=== PATIENT | male | born 1960 | race Caucasian/White ===

== ENCOUNTER 2018-01-08 17:05 | Emergency (ER) | payer OTHER ==
[2018-01-08 17:15] VITALS: BP 153/94
[2018-01-08] MEDS ORDERED: Albuterol/Ipratropium NEB.SOL* Albuterol 2.5 MG/Ipratropium 0.5 MG 3 ML INH ONE (17:32)
--- NOTE | 2018-01-08 17:33 | UC ---
Respiratory Complaint HPI - HPI Summary HPI Summary: The patient is a 57 y/o M presenting to [facility] with a chief complaint of fever ( 101F), chest tightness with mild SOB, and body aches and lethargy focused in the lower extremities starting yesterday with a current aching pain rating of 4/ 10 in severity. He denies any chest pain. He started with a fever yesterday, which he relieved with one dose of Motrin yesterday, none today. He then began feeling lethargic. He reports that these symptoms occur about every two years, which cause him to have bronchitis, and he has also had PNA from this. He additionally has a hx of HTN but no asthma. No one around him has similar symptoms, and he has not had any recent traveling. No allergies. Nonsmoker. - History of Current Complaint Chief Complaint: UCRespiratory Stated Complaint: FEVER,SORE THROAT Time Seen by Provider: 01/08/18 17:11 Hx Obtained From: Patient Onset/Duration: Sudden Onset, Lasting Hours - starting yesterday, Still Present Severity Initially: Moderate Severity Currently: Moderate Pain Intensity: 4 Pain Scale Used: 0-10 Numeric Character: Cough: Nonproductive Associated Signs And Symptoms: Positive: Fever - 101F, Pleuritic Chest Pain - chest tightness from SOB - Allergies/Home Medications Allergies/Adverse Reactions: Allergies Allergy/AdvReac Type Severity Reaction Status Date / Time No Known Allergies Allergy Verified 01/08/18 17:16 Home Medications: Home Medications Losartan TAB* [Cozaar TAB*] 1 tab PO DAILY 01/08/18 [History Confirmed 01/08/18] amLODIPine TAB* [Norvasc 5 mg TAB*] 2.5 mg PO DAILY 01/08/18 [History Confirmed 01/08/18] PMH/Surg Hx/FS Hx/Imm Hx Previously Healthy: Yes Endocrine History: Other Other Endocrine History: NEGATIVE: diabetes Cardiovascular History: Hypertension Other Cardiovascular History: negative Respiratory History: Bronchitis, Pneumonia, Other Other Respiratory History: NEGATIVE: asthma Other GI/ History: negative Other Neurological History: negative Other Psychological History: negative Other Cancer History: negative - Surgical History Surgical History: None - Social History Alcohol Use: Occasionally Substance Use Type: None Smoking Status (MU): Never Smoked Tobacco Review of Systems Constitutional: Fever - 101F, Other - body aches and lethargy focused in the lower extremities Skin: Negative Eyes: Negative ENT: Negative Respiratory: Shortness Of Breath - with chest tightness, Cough - nonproductive Cardiovascular: Negative Gastrointestinal: Negative Genitourinary: Negative Motor: Negative Neurovascular: Negative Musculoskeletal: Negative Neurological: Negative Psychological: Negative All Other Systems Reviewed And Are Negative: Yes Physical Exam - Summary Physical Exam Summary: Appearance: Well-Appearing, No Pain Distress, Well-Nourished Eyes: conjunctiva clear, no discharge ENT: Hearing grossly normal, no muffled/hoarse voice. Tympanic membrane normal appearing bilaterally. No pharyngeal erythema or exudates noted. Neck: Normal, Supple Respiratory/Lung Sounds: Lungs clear, air entry equal bilaterally, No respiratory distress, No accessory muscle use. No wheezing, rhonchi or crackles Cardiovascular: RRR, No murmur Abdomen: Nontender, Soft, no guarding, not distended Bowel Sounds: Present Musculoskeletal: Normal Neurological: Alert, muscle tone normal Psychiatric:Normal, age appropriate behavior Skin: Normal, Warm, Dry, Normal color Triage Information Reviewed: Yes Vital Signs: Initial Vital Signs Temp 100.7 F 01/08/18 17:13 Pulse 98 01/08/18 17:13 Resp 18 01/08/18 17:13 BP 153/94 01/08/18 17:13 Pulse Ox 100 01/08/18 17:13 Vital Signs Reviewed: Yes Diagnostic Evaluation - Laboratory O2 Sat by Pulse Oximetry: 100 Respiratory Course/Dx - Course Course Of Treatment: During the visit today, we discussed the findings and further plan. He got one nebulizer treatment with DuoNeb with improvement in his symptoms . Air entry was improved on exam as well . One dose of azithromycin 500 mg was given to him here and rest was prescribed to the pharmacy. Patient expressed understanding . - Differential Dx/Diagnosis Provider Diagnoses: Bronchitis Discharge - Sign-Out/Discharge Documenting (check all that apply): Patient Departure - Patient will be discharged home. All imaging exams completed and their final reports reviewed: No Studies - Discharge Plan Condition: Stable Disposition: HOME Prescriptions: Azithromycin TAB* [Zithromax TAB (Z-ELISA) 250 mg #6 tabs] 250 mg PO DAILY 4 Days #4 tab Patient Education Materials: Acute Bronchitis (ED) Referrals: [facility] [place] [facility] REFERRAL [Outside] - 3 Days Additional Instructions: Please start taking the medication as prescribed to the pharmacy . Ibuprofen as needed for fever. Follow up with your primary care doctor in 3 days. Patients blood pressure slightly high in Urgent care today , plan follow up with PCP for better control Return to Urgent care / ER if symptoms get worse. - Billing Disposition and Condition Condition: STABLE Disposition: Home - Attestation Statements Document Initiated by Aric: Yes Documenting Scribe: Padmaja Jones Provider For Whom Aric is Documenting (Include Credential): Dr. Emmy Schneider MD Scribe Attestation: I, Padmaja Jones scribed for Dr. Emmy Schneider MD on 01/08/18 at 1810. Scribe Documentation Reviewed: Yes Provider Attestation: The documentation as recorded by the Padmaja agustin accurately reflects the service I personally performed and the decisions made by me, Dr. Emmy Schneider MD
[2018-01-08] MEDS ORDERED: Azithromycin TAB* 250 MG PO ONE (17:36)
== END 2018-01-08 18:10 | disposition home or self-care (01) ==
LOC: UCEAST 17:05
DX: J40 Bronchitis, not specified as acute or chronic (principal); I10 Essential (primary) hypertension
CPT/HCPCS: 99202; A9270-GY; G0463

== ENCOUNTER 2018-11-20 15:43 | Emergency (ER) | payer OTHER ==
[2018-11-20 16:01] VITALS: BP 122/85
--- NOTE | 2018-11-20 16:10 | UC ---
Skin Complaint HPI - HPI Summary HPI Summary: 58 yo male presents with ?abscess to left posterior thigh. He tells me that over the last 3-4 days he has been noticing a painful lump at his buttocks/ thigh crease. Today was very painful. He is unable to visualize the area and is unsure what is there. Denies fever or chills. - History of Current Complaint Chief Complaint: UCSkin Time Seen by Provider: 11/20/18 16:07 Stated Complaint: CYST ON LEG Hx Obtained From: Patient Onset/Duration: Gradual Onset Onset Severity: Mild Current Severity: Moderate Pain Intensity: 4 Pain Scale Used: 0-10 Numeric - Allergy/Home Medications Allergies/Adverse Reactions: Allergies Allergy/AdvReac Type Severity Reaction Status Date / Time No Known Allergies Allergy Verified 11/20/18 16:01 PMH/Surg Hx/FS Hx/Imm Hx Cardiovascular History: Hypertension - Surgical History Surgical History: None - Family History Known Family History: Positive: Hypertension - Social History Occupation: Employed Full-time Lives: With Family Alcohol Use: Occasionally Substance Use Type: None Smoking Status (MU): Never Smoked Tobacco Review of Systems All Other Systems Reviewed And Are Negative: Yes Constitutional: Positive: Negative Skin: Positive: Other - Abscess Respiratory: Positive: Negative Cardiovascular: Positive: Negative Neurovascular: Positive: Negative Neurological: Positive: Negative Psychological: Positive: Negative Physical Exam - Summary Physical Exam Summary: GENERAL: NAD. WDWN. No pain distress. SKIN: LEFT buttock/thigh fold with 1.0cm abscess with 1.0cm surrounding erythema. TTP. No discharge, bleeding, or surrounding induration. CHEST: No accessory muscle use. Breathing comfortably and in no distress. CV: Pulses intact. Cap refill <2seconds NEURO: Alert. PSYCH: Age appropriate behavior. Triage Information Reviewed: Yes Vital Signs: Initial Vital Signs Temp 98.4 F 11/20/18 15:58 Pulse 72 11/20/18 15:58 Resp 16 11/20/18 15:58 BP 122/85 11/20/18 15:58 Pulse Ox 100 11/20/18 15:58 Vital Signs Reviewed: Yes Procedures - Incision and Drainage Left Thigh Anesthesia: Lidocaine Instrument(s): Scalpel - #11 Packing: Other - None Course/Dx - Course Course Of Treatment: The procedure was explained to the pt and all questions were answered. A time out was performed, witnessed, and signed. The area was cleansed with an alcohol pad. 1mL of 2% lidocaine without epi was administered and good anesthetization was achieved. A #11 blade was used to radha the central most part of the abscess. Copious yellow purulent material was able to be expressed. Pt tolerated well. Area bandaged with telfa. - Diagnoses Provider Diagnosis: Abscess Discharge - Sign-Out/Discharge Documenting (check all that apply): Patient Departure All imaging exams completed and their final reports reviewed: No Studies - Discharge Plan Condition: Stable Disposition: HOME Prescriptions: Cephalexin CAP* [Keflex CAP*] 500 mg PO TID #15 cap Patient Education Materials: Abscess (ED) Referrals: No Primary Care Phys,NOPCP [Primary Care Provider] - Additional Instructions: If you develop a fever, shortness of breath, chest pain, new or worsening symptoms - please call your PCP or go to the ED immediately. 1) Change the bandaged daily until well healed (likely 3-5 days) - Billing Disposition and Condition Condition: STABLE Disposition: Home - Attestation Statements Provider Attestation: I was available for consult. This patient was seen by the RODOLFO. The patient was not presented to, seen by, or examined by me. -Yariel
[2018-11-20] MEDS ORDERED: Lidocaine 2% PF * 5 ML VIAL INJ ONE (16:12)
== END 2018-11-20 16:30 | disposition home or self-care (01) ==
LOC: UCEAST 15:43
DX: L02.416 Cutaneous abscess of left lower limb (principal); I10 Essential (primary) hypertension
CPT/HCPCS: 10060; 99212; G0463